=== PATIENT | female | born 1965 | race Caucasian/White ===

== ENCOUNTER 2019-01-21 14:59 | Emergency (ER) | payer OTHER ==
[2019-01-21 15:13] VITALS: RESP 18; TEMP 98.2
[2019-01-21] MEDS ORDERED: SODIUM CHLORIDE 0.9% 500 ML 500 ML IV STA (15:15)
[2019-01-21] MEDS ORDERED: SODIUM CHLORIDE 0.9% 1,000 ML IV ONE (15:45)
[2019-01-21 16:32] LABS: Albumin 4.7 g/dL (3.5-5.0); Chloride 108 mmol/L (98-107); Glucose 100 mg/dL (74-99); Total Protein 8.7 g/dL (6.3-8.2)
[2019-01-21 16:33] LABS: ALT 17 U/L (9-52); AST 24 U/L (14-36); Alkaline Phosphatase 106 U/L (38-126); Anion Gap 13 mmol/L; Blood Urea Nitrogen 16 mg/dL (7-17); Carbon Dioxide 20 mmol/L (22-30); Potassium 3.8 mmol/L (3.5-5.1); Sodium 141 mmol/L (137-145); Total Bilirubin 1.2 mg/dL (0.2-1.3)
--- NOTE | 2019-01-21 17:04 | ED ---
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 Patient denies any fevers. She denies any chest pain or shortness of breath. Patient denies any leg swelling. She denies headache or dizziness. P atient states that her body hurts all over she states it feels as though she is "dope sick" or withdrawing. Admit to nausea, states decreased appetite. Pt is unable to localize symptoms, denies abdominal pain. He denies any neck stiffness she denies any new back pain. Patient denies any numbness tingling or loss sensation of the extremities. Upon arrival patient appears well there is no signs of acute distress vital signs within normal limits. Patient denies any recent dysuria or hematuria, constipation or diarrhea, visual changes, or any other complaints. - Related Data Home Medications Medication Instructions Recorded Confirmed No Known Home Medications 01/21/19 01/21/19 Allergies Allergy/AdvReac Type Severity Reaction Status Date / Time No Known Allergies Allergy Verified 01/21/19 16:45 Review of Systems ROS Statement: Those systems with pertinent positive or pertinent negative responses have been documented in the HPI. ROS Other: All systems not noted in ROS Statement are negative. Past Medical History Past Medical History: No Reported History History of Any Multi-Drug Resistant Organisms: None Reported Past Surgical History: No Surgical Hx Reported Past Psychological History: No Psychological Hx Reported Smoking Status: Current every day smoker Past Alcohol Use History: None Reported Past Drug Use History: Heroin General Exam - General Exam Comments Initial Comments: General: The patient is awake and alert, in no distress Eye: +3 mm pupils are equal, round and reactive to light, extra-ocular movements are intact. No nystagmus. There is normal conjunctiva bilaterally. No signs of icterus. Ears, nose, mouth and throat: There are moist mucous membranes and no oral lesions. Neck: The neck is supple, there is no tenderness or JVD. Cardiovascular: There is a regular rate and rhythm. No murmur, rub or gallop is appreciated. Respiratory: Lungs are clear to auscultation, respirations are non-labored, breath sounds are equal. No wheezes, stridor, rales, or rhonchi. Gastrointestinal: Soft, non-distended, non-tender abdomen without masses or organomegaly noted. There is no rebound or guarding present. No CVA tenderness. Bowel sounds are unremarkable. Musculoskeletal: Normal ROM, no tenderness. Strength 5/5. Sensation intact. Radial pulses equal bilaterally 2+. Neurological: A&O x 3. CN II-XII intact, There are no obvious motor or sensory deficits. Coordination appears grossly intact. Speech is normal. Skin: Skin is warm and dry and no rashes. Extensive scarring, tracking on the UE b/l. No erythema or abscesses. Psychiatric: Cooperative, appropriate mood & affect, normal judgment. Limitations: no limitations Course Vital Signs 01/21/19 15:11 Temperature 98.2 F Pulse Rate 66 Respiratory 18 Rate Blood Pressure 130/82 O2 Sat by Pulse 99 Oximetry - Reevaluation(s) Reevaluation #1: I asked patient if she had been receiving any opioids in the rehab facility, she disclosed to me that she had been getting Suboxone at one point and feel she is withdrawing from opioids. Patient's symptoms correlate clinically with opiate withdrawal. 01/21/19 18:16 Medical Decision Making - Medical Decision Making 30 female presented for withdrawal like symptoms. She states she has all over body aches and nausea. Initially patient did not disclose that she was receiving Suboxone from a another patient in rehabilitation. However patient didn't disclose this later. Patient's laboratory studies unremarkable. Patient did deny chest pain and shortness of breath. There is no evidence of localized infection on examination. Patient is no leukocytosis. Lactic acid within normal limits. No electrolyte derangements. Patient urinalysis does not reveal infection. Patient does not have any drugs in her system upon urinalysis. At this time I feel this is due to patient not receiving Suboxone and having withdrawal. Patient EKG showed no abnormalities. Chest x-ray within normal limits. Troponin negative. I did review the Septra studies with attending provider Dr. Sunshine at this time we feel this is related to a withdrawal syndrome. Patient be discharged and she was given fluids and 1 mg of xanax in the emergency department. - Lab Data Result diagrams: 01/21/19 16:56 01/21/19 16:10 Lab Results 01/21/19 01/21/19 01/21/19 Range/Units 16:10 16:10 16:10 WBC (3.8-10.6) k/uL RBC (3.80-5.40) m/uL Hgb (11.4-16.0) gm/dL Hct (34.0-46.0) % MCV (80.0-100.0) fL MCH (25.0-35.0) pg MCHC (31.0-37.0) g/dL RDW (11.5-15.5) % Plt Count (150-450) k/uL Neutrophils % % Lymphocytes % % Monocytes % % Eosinophils % % Basophils % % Neutrophils # (1.3-7.7) k/uL Lymphocytes # (1.0-4.8) k/uL Monocytes # (0-1.0) k/uL Eosinophils # (0-0.7) k/uL Basophils # (0-0.2) k/uL Sodium 141 (137-145) mmol/L Potassium 3.8 (3.5-5.1) mmol/L Chloride 108 H (98-107) mmol/L Carbon Dioxide 20 L (22-30) mmol/L Anion Gap 13 mmol/L BUN 16 (7-17) mg/dL Creatinine 0.40 L (0.52-1.04) mg/dL Est GFR (CKD-EPI)AfAm >90 (>60 ml/min/1.73 sqM) Est GFR (CKD-EPI)NonAf >90 (>60 ml/min/1.73 sqM) Glucose 100 H (74-99) mg/dL Plasma Lactic Acid Jaime 0.8 (0.7-2.0) mmol/L Calcium 10.0 (8.4-10.2) mg/dL Total Bilirubin 1.2 (0.2-1.3) mg/dL AST 24 (14-36) U/L ALT 17 (9-52) U/L Alkaline Phosphatase 106 (38-126) U/L Troponin I <0.012 (0.000-0.034) ng/mL Total Protein 8.7 H (6.3-8.2) g/dL Albumin 4.7 (3.5-5.0) g/dL TSH 0.625 (0.465-4.680) mIU/L Urine Color Urine Appearance (Clear) Urine pH (5.0-8.0) Ur Specific [place] (1.001-1.035) Urine Protein (Negative) Urine Glucose (UA) (Negative) Urine Ketones (Negative) Urine Blood (Negative) Urine Nitrite (Negative) Urine Bilirubin (Negative) Urine Urobilinogen (<2.0) mg/dL Ur Leukocyte Esterase (Negative) Urine RBC (0-5) /hpf Urine WBC (0-5) /hpf Urine Mucus (None) /hpf Urine Opiates Screen (NotDetected) Ur Oxycodone Screen (NotDetected) Urine Methadone Screen (NotDetected) Ur Propoxyphene Screen (NotDetected) Ur Barbiturates Screen (NotDetected) U Tricyclic Antidepress (NotDetected) Ur Phencyclidine Scrn (NotDetected) Ur Amphetamines Screen (NotDetected) U Methamphetamines Scrn (NotDetected) U Benzodiazepines Scrn (NotDetected) Urine Cocaine Screen (NotDetected) U Marijuana (THC) Screen (NotDetected) Influenza Type A RNA (Not Detectd) Influenza Type B (PCR) (Not Detectd) 01/21/19 01/21/19 01/21/19 Range/Units 16:10 16:56 17:30 WBC 7.1 (3.8-10.6) k/uL RBC 4.14 (3.80-5.40) m/uL Hgb 13.6 (11.4-16.0) gm/dL Hct 39.9 (34.0-46.0) % MCV 96.4 (80.0-100.0) fL MCH 32.7 (25.0-35.0) pg MCHC 34.0 (31.0-37.0) g/dL RDW 15.6 H (11.5-15.5) % Plt Count 250 (150-450) k/uL Neutrophils % 64 % Lymphocytes % 28 % Monocytes % 6 % Eosinophils % 1 % Basophils % 0 % Neutrophils # 4.5 (1.3-7.7) k/uL Lymphocytes # 2.0 (1.0-4.8) k/uL Monocytes # 0.4 (0-1.0) k/uL Eosinophils # 0.1 (0-0.7) k/uL Basophils # 0.0 (0-0.2) k/uL Sodium (137-145) mmol/L Potassium (3.5-5.1) mmol/L Chloride (98-107) mmol/L Carbon Dioxide (22-30) mmol/L Anion Gap mmol/L BUN (7-17) mg/dL Creatinine (0.52-1.04) mg/dL Est GFR (CKD-EPI)AfAm (>60 ml/min/1.73 sqM) Est GFR (CKD-EPI)NonAf (>60 ml/min/1.73 sqM) Glucose (74-99) mg/dL Plasma Lactic Acid Jaime (0.7-2.0) mmol/L Calcium (8.4-10.2) mg/dL Total Bilirubin (0.2-1.3) mg/dL AST (14-36) U/L ALT (9-52) U/L Alkaline Phosphatase (38-126) U/L Troponin I (0.000-0.034) ng/mL Total Protein (6.3-8.2) g/dL Albumin (3.5-5.0) g/dL TSH (0.465-4.680) mIU/L Urine Color Yellow Urine Appearance Clear (Clear) Urine pH 6.0 (5.0-8.0) Ur Specific [place] 1.037 H (1.001-1.035) Urine Protein 1+ H (Negative) Urine Glucose (UA) Negative (Negative) Urine Ketones 3+ H (Negative) Urine Blood Trace H (Negative) Urine Nitrite Negative (Negative) Urine Bilirubin 1+ H (Negative) Urine Urobilinogen 3.0 (<2.0) mg/dL Ur Leukocyte Esterase Negative (Negative) Urine RBC 4 (0-5) /hpf Urine WBC 1 (0-5) /hpf Urine Mucus Occasional H (None) /hpf Urine Opiates Screen Not Detected (NotDetected) Ur Oxycodone Screen Not Detected (NotDetected) Urine Methadone Screen Not Detected (NotDetected) Ur Propoxyphene Screen Not Detected (NotDetected) Ur Barbiturates Screen Not Detected (NotDetected) U Tricyclic Antidepress Not Detected (NotDetected) Ur Phencyclidine Scrn Not Detected (NotDetected) Ur Amphetamines Screen Not Detected (NotDetected) U Methamphetamines Scrn Not Detected (NotDetected) U Benzodiazepines Scrn Not Detected (NotDetected) Urine Cocaine Screen Not Detected (NotDetected) U Marijuana (THC) Screen Not Detected (NotDetected) Influenza Type A RNA Not Detected (Not Detectd) Influenza Type B (PCR) Not Detected (Not Detectd) - EKG Data EKG Comments: Ventricular rate 64 bpm, WA interval 110 ms, QRS duration 92 ms, QT/QTC 440/453 ms. Normal sinus rhythm right axis noted. There is incomplete right bundle branch block. Nonspecific ST abnormality. No ST elevation noted. EKG was interpreted by myself as well as attending provider Dr. Sunshine Disposition Clinical Impression: Opioid use with withdrawal Disposition: HOME SELF-CARE Condition: Good Instructions (If sedation given, give patient instructions): Opioid Withdrawal (ED) Additional Instructions: Please use medication as discussed. Please follow-up with family doctor in the next 2 days of symptoms have not improved. Please return to emergency room if the symptoms increase or worsen or for any other concerns. Is patient prescribed a controlled substance at d/c from ED?: No Referrals: None,Stated [Primary Care Provider] - 1-2 days [facility] [NON-STAFF] - 1-2 days Time of Disposition: 18:01
[2019-01-21 17:21] LABS: Basophils % (A) 0 %; Eosinophils # (A) 0.1 k/uL (0-0.7); Eosinophils % (A) 1 %; HCT 39.9 % (34.0-46.0); HGB 13.6 gm/dL (11.4-16.0); Lymphocytes % (A) 28 %; MCH 32.7 pg (25.0-35.0); MCV 96.4 fL (80.0-100.0); Mean Platelet Volume 8.1; Monocytes # (A) 0.4 k/uL (0-1.0); Monocytes % (A) 6 %; Neutrophils # (A) 4.5 k/uL (1.3-7.7); Neutrophils % (A) 64 %; Platelet Count 250 k/uL (150-450); RBC 4.14 m/uL (3.80-5.40); RDW 15.6 % (11.5-15.5); WBC 7.1 k/uL (3.8-10.6)
[2019-01-21 17:46] LABS: Appearance,Urine Clear (Clear); Bilirubin,Urine 1+ (Negative); Blood,Urine Trace (Negative); Color,Urine Yellow; Glucose,Urine (UA) Negative (Negative); Ketones,Urine 3+ (Negative); Leukocyte Esterase,Urine Negative (Negative); Mucus,Urine Occasional /hpf; Nitrite,Urine Negative (Negative); Protein,Urine 1+ (Negative); RBC,Urine 4 /hpf (0-5); Specific Gravity,Urine 1.037 (1.001-1.035); WBC,Urine 1 /hpf (0-5)
--- NOTE | 2019-01-21 17:46 | XR ---
EXAMINATION TYPE: XR chest 2V DATE OF EXAM: 01/21/2019 COMPARISON: NONE HISTORY: Weakness TECHNIQUE: Frontal and lateral views of the chest are obtained. FINDINGS: There is no heart failure nor confluent pneumonic infiltrate. Costophrenic angles are samara r. There are chest leads. Bony thorax is intact. IMPRESSION: No active cardiac pulmonary disease. Normal heart.
[2019-01-21 18:02] LABS: Amphetamine Screen,Urine Not Detected (NotDetected); Barbiturate Screen,Urine Not Detected (NotDetected); Benzodiazepines Screen,Urine Not Detected (NotDetected); Cocaine Screen,Urine Not Detected (NotDetected); Methadone Screen, Urine Not Detected (NotDetected); Opiate Screen,Urine Not Detected (NotDetected); Oxycodone Screen, Urine Not Detected (NotDetected); Phencyclidine Screen,Urine Not Detected (NotDetected); Tricyclic Antidepressant,Urine Not Detected (NotDetected); Urn Cannabinoid Scrn Not Detected (NotDetected)
[2019-01-21 18:23] VITALS: BP 132/84; PULSE 70
[2019-01-21] MEDS ORDERED: ALPRAZolam 1 MG TAB PO STA (18:23)
== END 2019-01-21 18:40 | disposition home or self-care (01) ==
LOC: EC 14:59
DX: F11.93 Opioid use, unspecified with withdrawal (principal); F17.200 Nicotine dependence, unspecified, uncomplicated
CPT/HCPCS: 36415; 71046; 80053; 80306; 81001; 83605; 84443; 84484; 85025; 87040; 87502; 93005; 96360; 99284